=== PATIENT | female | born 1950 | race Caucasian/White ===

== ENCOUNTER 2017-02-17 19:03 | Emergency (ER) | payer MEDICARE, BC ==
[~2017-02-17] VITALS: Ht 160 cm; Wt 64.9 kg
[2017-02-17 19:36] VITALS: BP 161/70; PULSE 91; RESP 16; TEMP 98.3; O2SAT 97
[2017-02-17] MEDS ORDERED: CEPH-460 PO (22:19)
[2017-02-17] MEDS ORDERED: BACT800T5 PO (22:19)
--- NOTE | 2017-02-17 22:25 | PD ---
HPI Chief Complaint: Bite or Sting Time Seen by Provider: 22:17 Travel History International Travel<30 days: No Contact w/Intl Traveler<30days: No Traveled to known affect area: No History of Present Illness HPI 67-year-old female that presents to the ED for evaluation of possible insect bite to the left breast. Per patient this occurred earlier today. Per patient she wasn't sure what it was told when she went to take a shower she noted she had a pimple-like lesion on her left breast. Per patient he seems to be given. More painful. She even tried to drain it with a small needle any her worse. She denies any drainage from it. No other medical issues. She did not see what actually bit her. Per patient her pain is 6 out of 10. Does not radiate. States cannot same area. Allergies to naproxen. No other medical issues. PFSH Past Medical History ?: Not Social History Alcohol Use: No Tobacco Use: No Substance Use: No Allergies-Medications (Allergen,Severity, Reaction): Coded Allergies: naproxen (Verified Allergy, Severe, 02/17/17) Reported Meds & Prescriptions Reported Meds & Active Scripts Active Keflex (Cephalexin) 500 Mg Cap 500 Mg PO Q6H 10 Days Bactrim DS (Sulfamethoxazole-Trimethoprim) 800-160 Mg Tab 1 Tab PO BID 10 Days Review of Systems Except as stated in HPI: all other systems reviewed are Neg Physical Exam Narrative GENERAL: SKIN: Warm and dry. Breasts: Done with female nurse present. Patient has what appears to be a pimple-like lesion that is about 0.25 cm with an area of induration about 1.5 seconds in diameter. Tender to touch. No purulence noted. No lymphadenopathy noted. HEAD: Atraumatic. Normocephalic. EYES: Pupils equal and round. No scleral icterus. No injection or drainage. ENT: No nasal bleeding or discharge. Mucous membranes pink and moist. Tongue is midline. No uvula deviation. NECK: Trachea midline. No JVD. CARDIOVASCULAR: Regular rate and rhythm. RESPIRATORY: No accessory muscle use. Clear to auscultation. Breath sounds equal bilaterally. GASTROINTESTINAL: Abdomen soft, non-tender, nondistended. Hepatic and splenic margins not palpable. MUSCULOSKELETAL: Extremities without clubbing, cyanosis, or edema. No obvious deformities. NEUROLOGICAL: Awake and alert. No obvious cranial nerve deficits. Motor grossly within normal limits. Five out of 5 muscle strength in the arms and legs. Normal speech. PSYCHIATRIC: Appropriate mood and affect; insight and judgment normal. Data Data Last Documented VS Vital Signs Date Time Temp Pulse Resp B/P (MAP) Pulse Ox O2 Delivery O2 Flow Rate FiO2 02/17/17 19:36 98.3 91 16 161/70 (100) 97 Orders Orders Sulfamet-Trimeth Ds 800-160 Mg (Bactrim (02/17/17 22:30) Cephalexin (Keflex) (02/17/17 22:30) [facility] Medical Decision Making Medical Screen Exam Complete: Yes Emergency Medical Condition: Yes Medical Record Reviewed: Yes Differential Diagnosis Insect bite versus cellulitis versus abscess versus pustule Narrative Course 67-year-old female that presents to the ED for evaluation of insect bite to the left breast. Patient was properly examined and was found to have signs and symptoms consistent with appears to be early cellulitis with consistent what appears to be early cellulitis from possible insect bite. I do not see any other sign of rashes. I do recommend trial of antibiotics. Patient was started on Keflex and Bactrim. Shingles is in my differential but patient does not have any other rash other than the one spot. She was told that if any more rashes develop she is to come back. She understands and agrees. Patient was given first dose of medications here. Patient was given prescriptions. Told to apply ice or warm compresses. OTC pain relievers as needed. See ED for worsening symptoms. Follow with PCP. Diagnosis Primary Impression: Infected insect bite Qualified Codes: W57.XXXA - Bitten or stung by nonvenomous insect and other nonvenomous arthropods, initial encounter Patient Instructions: General Instructions Additional Instructions: Taken antibiotics as prescribed. Follow with PCP. See ED worsening symptoms. Ice or warm compresses. Take OTC pain relievers as needed. Recheck in 48 hours if no improvement at all or worsening symptoms. Med/Other Pt SpecificInfo: Prescription(s) given Scripts Cephalexin (Keflex) 500 Mg Cap 500 MG PO Q6H for Infection for 10 Days, CAP 0 Refills Prov: Bianka Cunha MD 02/17/17 Sulfamethoxazole-Trimethoprim (Bactrim DS) 800-160 Mg Tab 1 TAB PO BID for Infection for 10 Days, TAB 0 Refills Prov: Bianka Cunha MD 02/17/17 Disposition: 01 DISCHARGE HOME Condition: Stable Jonathan Harris Feb 17, 2017 22:25
[2017-02-17] MEDS ORDERED: CEPHALEXIN MONOHYDRATE 500 MG CAP PO ONE (22:30)
[2017-02-17] MEDS ORDERED: SULFAMETHOXAZOLE-TRIMETHOPRIM DS 800-160 MG TAB PO ONE (22:30)
[2017-02-17] MEDS ORDERED: TETANUS/DIPHTHERIA TOXOID ADULT 0.5 ML VIAL IM ONE (22:45)
== END 2017-02-17 22:44 | disposition home or self-care (01) ==
LOC: PHED 19:03 → PHEFT 22:44
DX: S20.162A Insect bite (nonvenomous) of breast, left breast, initial encounter (principal); W57.XXXA Bitten or stung by nonvenomous insect and other nonvenomous arthropods, initial encounter
CPT/HCPCS: 90471; 90714